=== PATIENT | female | born 1975 | race Caucasian/White ===

== ENCOUNTER 2024-09-04 02:08 | Emergency (ER) | payer OTHER, SELFPAY ==
[~2024-09-04] VITALS: Ht 165.1 cm; Wt 81.8 kg
[2024-09-04 02:19] VITALS: TEMP 97.5
[2024-09-04 04:30] VITALS: BP 122/78; O2SAT 99
[2024-09-04] MEDS: ACETAMINOPHEN 325 MG TAB PO ONE (05:28)
== END 2024-09-04 05:29 | disposition home or self-care (01) ==
LOC: M ED 02:08
DX: S06.0X0A Concussion without loss of consciousness, initial encounter (principal); W22.8XXA Striking against or struck by other objects, initial encounter; F17.200 Nicotine dependence, unspecified, uncomplicated; Z88.6 Allergy status to analgesic agent; Y92.830 Public park as the place of occurrence of the external cause; Y93.89 Activity, other specified; Y99.9 Unspecified external cause status